=== PATIENT | female | born 1960 | race American Indian/Alaskan Native ===

== ENCOUNTER 2018-11-03 10:50 | Emergency (ER) | payer SELFPAY ==
[2018-11-03] MEDS ORDERED: ASPIRIN PO ONE (12:29)
[2018-11-03] MEDS ORDERED: NACL 0.9% 1000 ML 1,000 ML IV ONE (12:29)
[2018-11-03] MEDS ORDERED: NITROSTAT SL ONE (12:29)
[2018-11-03] MEDS ORDERED: PEPCID IV ONE (12:29)
[2018-11-03] MEDS ORDERED: TORADOL IV ONE (12:29)
[2018-11-03] MEDS ORDERED: ZOFRAN IV ONE (12:29)
--- NOTE | 2018-11-03 13:33 | XRay Report ---
PROCEDURE: XR CHEST ROUTINE 2V TECHNIQUE: PA and lateral chest radiographs were obtained. HISTORY: Chest Pain COMPARISONS: None. FINDINGS: Heart: Normal. Mediastinum/Vessels: Normal. Lungs/Pleural space: Normal. Bony thorax: No acute osseous abnormality. IMPRESSION: No radiographic evidence of acute cardiopulmonary disease. This document is electronically signed by Yobani Perez MD., November 03 2018 01:31:54 PM ET
[2018-11-03 13:52] LABS: Basophils % (Auto) 0.2 % (0.0-1.8); Hematocrit 38.3 % (30.3-42.9); Hemoglobin 13.3 gm/dl (10.1-14.3); Lymphocytes # (Auto) 0.7 K/mm3 (1.2-5.4); Lymphocytes % (Auto) 8.6 % (13.4-35.0); Mean Corpuscular HGB Conc 35 % (30-34); Mean Corpuscular Volume 94 fl (79-97); Monocytes # (Auto) 0.3 K/mm3 (0.0-0.8); Monocytes % (Auto) 4.2 % (0.0-7.3); Platelet Count 249 K/mm3 (140-440); Red Blood Count 4.09 M/mm3 (3.65-5.03); Red Cell Distribution Width 14.6 % (13.2-15.2)
[2018-11-03 14:00] VITALS: BP 182/108
[2018-11-03 14:04] LABS: INR 1.02 (0.87-1.13)
[2018-11-03 14:05] LABS: Partial Thromboplastin Time 33.4 Sec. (24.2-36.6)
--- NOTE | 2018-11-03 15:15 | Emergency Department Report ---
ED Chest Pain HPI - General Chief Complaint: Nausea/Vomiting/Diarrhea Stated Complaint: CHEST PAIN/VOMITING YELLOW SUBSTANCE/DIZZINESS Time Seen by Provider: 11/03/18 12:24 Source: patient Mode of arrival: Ambulatory Limitations: No Limitations - History of Present Illness Initial Comments: Patient is a 58-year-old [place] female who is presenting with chest pain as well as nausea and vomiting for the past A. Patient states she is very dizzy and has some numbness in the left arm and right leg. Patient apparently in triage was having erratic behavior and had walked in and out of the emergency department numerous times. Patient was called several times but did not respond. Eventually police arrived and stated that someone from our emergency d [facility] called 911 will we inquired about this was the patient started yelling from her car that she called police because no one would give her a wheelchair. One of the police officers actually on his way in actually been asked about the wheelchair from the patient unknowingly that she is the one to call 911 and he offered her wheelchair however she declined. Severity scale (0 -10): 6 - Related Data Previous Rx's Medication Instructions Recorded Last Taken Type Famotidine [Pepcid] 20 mg PO BID #20 tablet 11/03/18 Unknown Rx Ondansetron [Zofran Odt] 4 mg PO Q8HR #10 tab.rapdis 11/03/18 Unknown Rx Allergies Allergy/AdvReac Type Severity Reaction Status Date / Time Penicillins Allergy Rash Verified 11/03/18 10:52 Heart Score - HEART Score History: Slightly suspicious EKG: Non-specific Age: 45-65 Risk factors: No known risk factors Troponin: < normal limit HEART Score: 2 ED Review of Systems ROS: Stated complaint: CHEST PAIN/VOMITING YELLOW SUBSTANCE/DIZZINESS Other details as noted in HPI Comment: All other systems reviewed and negative ED Past Medical Hx - Past Medical History Previous Medical History?: Yes Additional medical history: thyroid problems - Surgical History Past Surgical History?: Yes Additional Surgical History: heart cath - Social History Smoking Status: Current Every Day Smoker Substance Use Type: Alcohol, Marijuana, Prescribed - Medications Home Medications: Home Medications Medication Instructions Recorded Confirmed Last Taken Type Famotidine [Pepcid] 20 mg PO BID #20 tablet 11/03/18 Unknown Rx Ondansetron [Zofran Odt] 4 mg PO Q8HR #10 tab.rapdis 11/03/18 Unknown Rx ED Physical Exam - General Limitations: No Limitations General appearance: alert, anxious - Head Head exam: Present: atraumatic, normocephalic - Eye Eye exam: Present: normal appearance, PERRL, EOMI - ENT ENT exam: Present: mucous membranes moist - Neck Neck exam: Present: normal inspection - Respiratory Respiratory exam: Present: normal lung sounds bilaterally. Absent: respiratory distress, wheezes, rales, rhonchi - Cardiovascular Cardiovascular Exam: Present: regular rate, normal rhythm, normal heart sounds. Absent: systolic murmur, diastolic murmur, rubs, gallop - GI/Abdominal GI/Abdominal exam: Present: soft, normal bowel sounds. Absent: distended, tende rness, guarding, rebound, rigid - Extremities Exam Extremities exam: Present: normal inspection - Back Exam Back exam: Present: normal inspection - Neurological Exam Neurological exam: Present: alert, oriented X3 - Psychiatric Psychiatric exam: Present: normal affect, normal mood - Skin Skin exam: Present: warm, dry, intact, normal color. Absent: rash ED Course Vital Signs 11/03/18 11/03/18 10:56 13:59 Temperature 97.6 F Pulse Rate 90 70 Respiratory 18 Rate Blood Pressure 167/102 182/108 O2 Sat by Pulse 99 Oximetry ED Medical Decision Making - Lab Data Result diagrams: 11/03/18 13:23 Lab Results 11/03/18 11/03/18 11/03/18 Range/Units 13:23 13:23 13:23 WBC 7.7 (4.5-11.0) K/mm3 RBC 4.09 (3.65-5.03) M/mm3 Hgb 13.3 (10.1-14.3) gm/dl Hct 38.3 (30.3-42.9) % MCV 94 (79-97) fl MCH 33 H (28-32) pg MCHC 35 H (30-34) % RDW 14.6 (13.2-15.2) % Plt Count 249 (140-440) K/mm3 Lymph % (Auto) 8.6 L (13.4-35.0) % Forest % (Auto) 4.2 (0.0-7.3) % Eos % (Auto) 0.0 (0.0-4.3) % Baso % (Auto) 0.2 (0.0-1.8) % Lymph # 0.7 L (1.2-5.4) K/mm3 Forest # 0.3 (0.0-0.8) K/mm3 Eos # 0.0 (0.0-0.4) K/mm3 Baso # 0.0 (0.0-0.1) K/mm3 Seg Neutrophils % 87.0 H (40.0-70.0) % Seg Neutrophils # 6.7 (1.8-7.7) K/mm3 PT 13.1 (12.2-14.9) Sec. INR 1.02 (0.87-1.13) APTT 33.4 (24.2-36.6) Sec. Troponin T < 0.010 (0.00-0.029) ng/mL Lipase 12 L (13-60) units/L - EKG Data -: EKG Interpreted by Ks - EKG Data 11/03/18 16:02 EKG shows sinus bradycardia rate of 56 axes normal intervals are normal. There are no ST segment elevations or depressions. There are T-wave inversions in lead V4 and V5 which are nonspecific. Time of interpretation 1529 - Radiology Data [facility] [address] [place] [address] XRay Report Signed Patient: ACE STILES MR# : [id number] : 1960 Acct:[id number] Age/Sex: 58 / F ADM Date: 11/03/18 Loc: ED Attending Dr: Ordering Physician: LILLIAN ROSE MD Date of Service: 11/03/18 Procedure(s): XR chest routine 2V Accession Number(s): [id number] cc: LILLIAN ROSE MD Fluoro Time In Minutes: PROCEDURE: XR CHEST ROUTINE 2V TECHNIQUE: PA and lateral chest radiographs were obtained. HISTORY: Chest Pain COMPARISONS: None. FINDINGS: Heart: Normal. Mediastinum/Vessels: Normal. Lungs/Pleural space: Normal. Bony thorax: No acute osseous abnormality. IMPRESSION: No radiographic evidence of acute cardiopulmonary disease. This document is electronically signed by Yobani Perez MD., November 03 2018 01:31:54 PM ET Transcribed By: [email or web address] Dictated By: YOBANI PEREZ MD Electronically Authenticated By: YOBANI PEREZ MD Signed Date/Time: 11/03/18 133 DD/ 16 TD/TT: 11/03/18 131 - Medical Decision Making Is able to speak with the patient's nephew was able to calm the patient down considerably. Her nephew states that she has had decades of drug abuse and one point had gotten help and has stopped using drugs however she is return to drug use again. Patient does admit that she smoked some marijuana laced with "ice"and is also now very apologetic to staff for cursing and being irate on arrival. Patient's laboratory studies are within normal limits. Patient's heart rate and blood pressure both declined after she calmed down. Patient be referred to primary care here in [place] and the patient also be given meds for symptomatic relief. Critical care attestation.: If time is entered above; I have spent that time in minutes in the direct care of this critically ill patient, excluding procedure time. ED Disposition Clinical Impression: Atypical chest pain, Amphetamine abuse Acute gastritis Qualifiers: Gastritis type: superficial Gastritis bleeding: without bleeding Qualified Code(s): K29.00 - Acute gastritis without bleeding Disposition: DC-01 TO HOME OR SELFCARE Is pt being admited?: No Does the pt Need Aspirin: No Condition: Stable Instructions: Chest Pain (ED), Acute Nausea and Vomiting (ED), Polysubstance Abuse (ED), Anxiety (ED) Additional Instructions: Please see the brochure that was given for [facility] as well. Potential drug treatment program Referrals: LOUISE SZYMANSKI MD [Primary Care Provider] - 3-5 Days Time of Disposition: 16:05
== END 2018-11-03 16:16 | disposition home or self-care (01) ==
LOC: ED 10:50
DX: K29.70 Gastritis, unspecified, without bleeding (principal); F15.10 Other stimulant abuse, uncomplicated; F17.200 Nicotine dependence, unspecified, uncomplicated; F12.10 Cannabis abuse, uncomplicated; Z88.0 Allergy status to penicillin; Z98.890 Other specified postprocedural states
CPT/HCPCS: 36415; 71046; 83690; 84484; 85025; 85610; 85730; 93005; 93010; 96374; 96375; 99285; J1885; J2405; J7030